=== PATIENT | female | born 2000 | race Caucasian/White ===

== ENCOUNTER 2022-08-19 14:33 | Emergency (ER) | payer OTHER, SELFPAY ==
--- NOTE | 2022-08-19 14:44 | ED.ANIMALBIT ---
HPI - Animal Bite General Chief Complaint: Animal Bite Stated Complaint: Animal Bite Time Seen by Provider: 08/19/22 14:43 Source: patient Mode of arrival: ambulatory Limitations: no limitations History of Present Illness HPI narrative: Patient is a 21-year-old female presents with cat bite to right hand. 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 Patient caught cat and when she picked him up she was bit. Patient states cat is not up-to-date on vaccines, cat is indoor only cat. Patient did cleanse wound as soon as it happened. Reports some tenderness to index finger but no weakness. Denies any obvious swelling or drainage from wound. Patient is unsure when her last tetanus shot was Related Data Home Medications Medication Instructions Recorded Confirmed levonorgestrel 14 mcg/24 hrs (3 1 device intrauterine ONCE 03/27/19 08/19/22 yrs) 13.5 mg intrauterine device (Rosalba) Allergies Allergy/AdvReac Type Severity Reaction Status Date / Time No Known Allergies Allergy Verified 08/19/22 14:49 Review of Systems Review of Systems: All systems reviewed & are unremarkable except as noted in HPI and below Constitutional: Constitutional: Denies body ache(s), Denies chills, Denies fatigue, Denies fever(s), Denies headache(s), Denies malaise and Denies weakness Eyes: Eyes: Denies blurry vision, Denies irritation and Denies loss of vision ENT: Denies otalgia, Denies headache(s), Denies nasal discharge, Denies sinus pain and Denies sore throat Cardiovascular: Cardiovascular: Denies chest pain, Denies irregular heart rhythm and Denies dyspnea Respiratory: Respiratory: Denies dyspnea Gastrointestinal: Gastrointestinal: Denies abdominal pain, Denies melena, Denies hematochezia, Denies diarrhea, Denies nausea and Denies vomiting Musculoskeletal: Musculoskeletal: Denies back pain, Denies myalgias and Denies arthralgias Integumentary/Breasts: Skin/Breast: Denies pruritus, Denies rash and Reports wounds Neurologic: Denies headache(s), Denies loss of vision and Denies weakness Psychiatric: Psychiatric: Reports no additional psychiatric complaints Endocrine: Endocrine: Denies fatigue PMF Past Medical History Medical History (Updated 08/19/22 @ 15:15 by Winter Parikh APRN) MTHFR mutation Family History Family History Grandparent Family history of blood dyscrasia Mother Family history of blood dyscrasia Social History Social History Smoking status: Never smoker Alcohol intake: never Comments At time of signature, agree with nursing past medical, surgical, social and family history. There is no relevant family history pertinent to the presenting complaint. Exam Const: General: cooperative, healthy appearing, comfortable, no acute distress and well nourished Nutritional Appearance: well nourished Orientation/consciousness: patient oriented x3 Limitations: no limitations HENMT: Head: normal to inspection, normocephalic and atraumatic Ears: hearing grossly normal bilaterally and external ears normal Face/Nose/Sinus: Normal external nose present, normal facial exam and face symmetric Face and sinus: normal facial exam and face symmetric Mouth: Yes lip normal Eyes: General: appearance normal, both eyes and all related structures Alignment and Position: alignment normal and position normal Periorbital: periorbital findings normal Eyelids: eyelids normal Pupils: Equal, round and reactive pupils present EOM: EOMs intact bilaterally Neck: Neck: normal visual inspection, full ROM and supple Chest: Chest palpation & inspection: normal inspection of the chest Resp: Effort & Inspection: normal respiratory effort and able to speak in complete sentences Auscultation: clear to auscultation bilaterally Cardio: Rate: regular rate Rhythm: regular rhythm Heart sound
[2022-08-19 14:48] VITALS: BP 101/58; PULSE 67; RESP 16; TEMP 36.4; O2SAT 100
[2022-08-19] MEDS: TETANUS,DIPHTHERIA,AC PERTUSSIS ADULT (0.5 ML) BOOSTRIX IM (15:05)
== END 2022-08-19 15:25 | disposition home or self-care (01) ==
PROVIDERS: Emergency Provider Nurse Practitioner Family
DX: S60.511A Abrasion of right hand, initial encounter (principal); W55.01XA Bitten by cat, initial encounter; Z23 Encounter for immunization; E72.12 Methylenetetrahydrofolate reductase deficiency
CPT/HCPCS: 90471; 90715; 99213; G0463

== ENCOUNTER 2022-11-05 13:00 | Emergency (ER) | payer OTHER, SELFPAY ==
--- NOTE | ~2022-11-05 | XR_ITS ---
EXAM: XR hand LT min 3V DATE: 11/05/2022 14:26 HISTORY: trauma DOG BITE VS LT 5TH DIGIT PIP 2 PUNCTURES . COMPARISON: None available. FINDINGS: Normal mineralization. No fracture or dislocation. No lytic or blastic lesion. Joint space s are maintained. No erosion or periosteal change. Soft tissues within normal limits. IMPRESSION: No acute osseous finding in the left hand. Reviewed, dictated and finalized at location K.
[2022-11-05 13:06] VITALS: BP 111/73; PULSE 86; RESP 20; TEMP 36.7; O2SAT 100
[2022-11-05] MEDS: HYDROcodone/acetaminophen (*CRX) 5-325 MG TABLET 1 TAB PO (14:22)
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
[2022-11-05] MEDS: AMOXICILLIN/CLAVULANATE K 875-125 MG TAB 1 TABLET PO (15:23)
[2022-11-05] MEDS: BACITRACIN/POLYMYXIN B OINT 15 GM TUBE 1 APPLIC TOPICAL (15:29)
[2022-11-05 15:30] VITALS: BP 110/69; PULSE 74; RESP 18; O2SAT 98
== END 2022-11-05 15:31 | disposition home or self-care (01) ==
PROVIDERS: Emergency Provider Nurse Practitioner Family
DX: S61.257A Open bite of left little finger without damage to nail, initial encounter (principal); W54.0XXA Bitten by dog, initial encounter
CPT/HCPCS: 73130; 99283; A9270

== ENCOUNTER 2023-05-07 17:22 | Emergency (ER) | payer OTHER, SELFPAY ==
--- NOTE | ~2023-05-07 | CT_ITS ---
EXAMINATION: CTA neck DATE: 05/07/2023 20:26 INDICATION: Strain relation injury, dizziness TECHNIQUE: Computed tomography (CT) of the neck was performed with 75 cc of Omnipaque 350 intravenous contrast. The dose-length product (DLP) was 617.24 mGy-cm. Automated exposure control and iterative reconstruction technique were employed. COMPARISON: None FINDINGS: There is no aneurysm or dissection. The carotid and vertebral arteries are unremarkable. Th e thyroid gland is unremarkable. The submandibular and parotid glands are symmetric. There is no lymp hadenopathy. There are no masses identified. The vasculature is patent. The airway is unremarkable. T here are no osseous abnormalities. The orbits are unremarkable. The superior mediastinum is unremarka ble. Visualized sinuses and mastoid air cells are well aerated. IMPRESSION: 1. Unremarkable CTA neck. Reviewed, dictated and finalized at location F. IMPRESSION: 1. Unremarkable CTA neck.
[2023-05-07 17:31] VITALS: BP 130/85; PULSE 73; RESP 18; TEMP 36.4; O2SAT 100
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
[2023-05-07 18:46] LABS: Basophils Percent Auto 0.5 % (0.2-1.2); Eosinophils Percent Auto 0.5 % (0-4.4); Hematocrit 44.6 % (37.0-47.0); Hemoglobin 15.2 g/dL (12.0-15.0); Immature Granulocyte Absolute 0.01 K/mm3 (0.00-0.031); Immature Granulocyte Percent A 0.1 % (0-0.5); Lymphocytes Absolute Auto 2.46 K/mm3 (0.9-3.2); Lymphocytes Percent Auto 33.8 % (18.3-44.2); Mean Corpuscular HGB Conc 34.1 g/dl (32-36); Mean Corpuscular Hemoglobin 29.4 pg (26-34); Mean Corpuscular Volume 86.3 fl (80-100); Mean Platelet Volume 9.5 fl (7.4-10.4); Monocytes Absolute Auto 0.6 K/mm3 (0.1-0.6); Monocytes Percent Auto 8.4 % (2.6-8.5); Neutrophils Absolute Auto 4.1 K/mm3 (1.3-6.7); Neutrophils Percent Auto 56.7 % (45.5-73.1); Platelet Count Result 251 k/mm3 (150-375); Red Blood Count 5.17 M/mm3 (4.2-5.4); Red Cell Distribution Width 12.6 % (11.5-14.5); White Blood Count 7.3 K/mm3 (4.5-10.0)
[2023-05-07 18:58] LABS: Anion Gap 5 mmol/L (8-16); Blood Urea Nitrogen 9 mg/dL (7-17); Calcium 9.1 mg/dL (8.4-10.2); Carbon Dioxide 27 mmol/L (22-30); Chloride 105 mmol/L (98-107); Estimated CRCL calculation 128 ml/min; Estimated Glomerular Filt Rate > 60; Glucose 89 mg/dL (65-110); Potassium 3.8 mmol/L (3.4-5.0); Sodium 137 mmol/L (137-145)
[2023-05-07 21:53] VITALS: BP 126/81; PULSE 70; RESP 17; O2SAT 100
== END 2023-05-07 21:55 | disposition home or self-care (01) ==
PROVIDERS: Physician Assistant; Emergency Provider Emergency Medicine
DX: M54.2 Cervicalgia (principal); Y04.8XXA Assault by other bodily force, initial encounter
CPT/HCPCS: 36415; 70498; 80048; 85025; 99284; Q9967

== ENCOUNTER 2023-07-27 08:42 | Emergency (ER) | payer OTHER, SELFPAY ==
[2023-07-27 09:01] VITALS: BP 108/59; PULSE 60; RESP 16; TEMP 36.6; O2SAT 100
--- NOTE | 2023-07-27 09:28 | ED.SKABFB ---
HPI - Skin/Abscess/Foreign Bdy General Chief complaint: Skin/Abscess/Foreign Body Stated complaint: cat bite right finger Time Seen by Provider: 07/27/23 09:21 Source: patient and RN notes reviewed Mode of arrival: ambulatory Limitations: no limitations History of Present Illness HPI narrative: Patient presents today complaining of cat bites to her right hand that were sustained this morning at 8:00 a.m. at work at a [employer] office. States cat is up-to-date on vaccines. Patient is up-to-date on her tetanus shot. She did clean the wounds with chlorhexidine prior to arrival. Denies numbness or tingling. She has been bit by catheterization and dog several times in the past to the right hand. Related Data Home Medications Medication Instructions Recorded Confirmed levonorgestrel 14 mcg/24 hr (up to 1 device intrauterine ONCE 03/27/19 07/27/23 3 yrs) 13.5 mg intrauterine device (Rosalba) Allergies Allergy/AdvReac Type Severity Reaction Status Date / Time No Known Allergies Allergy Verified 07/27/23 08:54 Review of Systems Review of Systems: CONSTITUTIONAL: Denies body aches, fever, chills, or sweats. EYES: Denies visual changes, redness, or discharge. ENT: Denies rhinorrhea, congestion, sore throat, or otalgia. CARDIOVASCULAR: Denies chest pain, palpitations, or edema. RESPIRATORY: Denies cough or dyspnea. GASTROINTESTINAL: Denies abdominal pain, nausea, vomiting, or diarrhea. GENITOURINARY: Denies dysuria or hematuria. SKIN: Denies rash, itching. + cat bite to right hand MUSCULOSKELETAL: Denies back pain, joint pain, or myalgia. NEUROLOGIC: Denies headache, numbness, tingling, or weakness. PSYCH: Denies depression or anxiety. [facility] Past Medical History Medical History (Updated 07/27/23 @ 09:33 by Monet Mason, COR[place], SHAMAR) MTHFR mutation Family History Family History Grandparent Family history of blood dyscrasia Mother Family history of blood dyscrasia Social History Social History Smoking status: Never smoker Alcohol intake: never Comments At time of signature, I have reviewed and agree with nursing past medical, surgical, social and family history unless otherwise noted. Please see nursing chart for further information. There is no relevant family history pertinent to the presenting complaint Exam Narrative: GENERAL: Well-appearing, well-nourished, and in no acute distress. HEAD: Normocephalic, atraumatic. EYES: EOMI. No redness or drainage. Conjunctivae normal. ENT: Mucous membranes pink and moist. NECK: Normal AROM. CHEST: No respiratory distress. EXTREMITIES: Normal range of motion. No edema. SKIN: Warm, dry, no rash. Capillary refill normal. Normal skin turgor. Puncture wounds to the dorsum of the right hand at the 2nd proximal phalanx, base of the 2nd finger, and the base of the 2nd metacarpal. Distal sensation intact in all 5 fingers, capillary refill normal. Full range of motion of all fingers. NEURO: No focal deficits. Alert and oriented x3. Gait steady. PSYCH: Normal affect. No signs of depression or anxiety. Course Course Level of Care: Express Care Visit Vital Signs Vital signs: Vital Signs Temperature 97.9 F 07/27/23 09:01 Pulse Rate 60 07/27/23 09:01 Respiratory Rate 16 07/27/23 09:01 Blood Pressure 108/59 L 07/27/23 09:01 Pulse Oximetry 100 07/27/23 09:01 Oxygen Delivery Room Air 07/27/23 09:01 Temperature 97.9 F 07/27/23 09:01 Pulse Rate 60 07/27/23 09:01 Respiratory Rate 16 07/27/23 09:01 Blood Pressure 108/59 L 07/27/23 09:01 Pulse Oximetry 100 07/27/23 09:01 Oxygen Delivery Room Air 07/27/23 09:01 Reviewed MDM - Skin/Abscess/Foreign Bdy MDM Narrative Medical decision making narrative: Patient's wounds were cleansed and dressed with Band-Aids. Care instructions giv
== END 2023-07-27 09:42 | disposition home or self-care (01) ==
PROVIDERS: Emergency Provider Nurse Practitioner
DX: S61.431A Puncture wound without foreign body of right hand, initial encounter (principal); S61.230A Puncture wound without foreign body of right index finger without damage to nail, initial encounter; W55.01XA Bitten by cat, initial encounter; E72.12 Methylenetetrahydrofolate reductase deficiency
CPT/HCPCS: 99213; G0463

== ENCOUNTER 2024-07-14 11:53 | Emergency (ER) | payer OTHER, SELFPAY ==
--- NOTE | 2024-07-14 11:55 | ED_ITS ---
HPI - Animal Bite General Chief Complaint: Wound/Laceration Stated Complaint: Dog Bite Time Seen by Provider: 07/14/24 11:55 Source: patient Mode of arrival: ambulatory Limitations: no limitations History of Present Illness HPI narrative: Blanche is a 23-year-old female patient presenting to the clinic today with complaints of a dog bite x2 days. Was bit by a dog on Sunday while she was at work. She reports that she was trying to lift a dog up to the table and it bit her. Has scabbed over wound to the right 2nd knuckle with localized redness and swelling. Last tetanus was 2022. No fevers, chills, body aches. Denies any discharge from the wound. Dog's immunizations are not immediately known-dog did pass away in their waiting on rabies testing to come back. Related Data Home Medications ?Medication ?Instructions ?Recorded ?Confirmed ?Last Taken ?Type bupropion HCl 150 mg 24 hr tablet, mg PO 07/14/24 Unknown History extended release metformin 500 mg tablet mg 07/14/24 Unknown History spironolactone 50 mg tablet mg 07/14/24 Unknown History Allergies Allergy/AdvReac Type Severity Reaction Status Date / Time No Known Allergies Allergy Verified 07/14/24 12:27 Review of Systems Review of Systems: Pertinent positives per HPI. Patient denies any fever, chills, rash, headache, visual changes, dizziness, cough, runny nose, sore throat, shortness of breath, chest pain, palpitations, nausea, vomiting, diarrhea, constipation, abdominal pain, or any urinary issues. PMFSH Past Medical History Medical History MTHFR mutation Family History Family History Grandparent Family history of blood dyscrasia Mother Family history of blood dyscrasia Social History Social History Smoking status: Never smoker Alcohol intake: never Comments At the time of my signature, I reviewed and agree with the nursing past medical, surgical, social, and family history. There is no relevant family history pertinent to the patient complaint. Exam Narrative: General: Well-developed, well nourished, in no apparent distress Head: Normocephalic, atraumatic. Cardio: Regular rate and rhythm, s1 and s2 normal, no murmur appreciated. Resp: Clear to auscultation bilaterally, no rhonchi, rales, wheezing or rubs. Integumentary: [place], warm, and dry, redness, swelling, mild erythema, and tenderness to palpation over the right 2nd knuckle with a scabbed puncture wou nd-no drainage, no palpable abscess or fluctuance. Redness measuring approximately 2 x 2 cm Course Course Emergency Course: Portions of this record may have been created with voice recognition software. Level of Care: Express Care Visit Vital Signs Vital signs: Vital Signs Temperature 36.4 C 07/14/24 12:06 Pulse Rate 73 07/14/24 12:06 Respiratory Rate 20 07/14/24 12:06 Blood Pressure 106/66 07/14/24 12:06 Pulse Oximetry 100 07/14/24 12:06 Oxygen Delivery Room Air 07/14/24 12:06 Temperature 36.4 C 07/14/24 12:06 Pulse Rate 73 07/14/24 12:06 Respiratory Rate 20 07/14/24 12:06 Blood Pressure 106/66 07/14/24 12:06 Pulse Oximetry 100 07/14/24 12:06 Oxygen Delivery Room Air 07/14/24 12:06 Vital signs reviewed MDM - Animal Bite MDM Narrative Medical decision making narrative: At the time of visit patient is resting comfortably on the exam table. Patient appears to be nontoxic. Plan: I suspect patient has an infected dog bite to the right knuckle of the index finger. Has full range of motion of the index finger but is painful with flexion and extension due to swelling. No palpable abscess. No discharge. Will place patient on Augmentin. Supportive measures were discussed with the patient and they voiced understanding discharge instructions and agrees to treatment plan. Return precautions reviewed Differential Diagnosis Differential diagnosis: Likely bite by animal, dog bite and rabies contact Discharge Plan Discharge Clinical Impression: Infected dog bite of finger Qualifiers: Encounter type: initial encounter Qualified Code(s): S61.259A - Open bite of unspecified finger without damage to nail, initial encounter Patient Disposition: Home Condition: Stable Instructions: Antibiotic Form, Animal Bite (ED), Cellulitis (ED) Additional Instructions: Rest, ice, elevate Take Augmentin as prescribed Tylenol/motrin for pain as discussed. Keep wound clean and dry Watch for signs and symptoms of worsening infection-increase in redness, streaking, swelling, purulent discharge, or increase in pain. Follow up with your PCP in 2-3 days for wound check Go to the emergency room if symptoms worsen Patient Language: [place]at[place] Prescriptions: New amoxicillin-pot clavulanate 875-125 mg tablet 1 tablet PO Q12H 7 Days Qty: 14 0RF Discontinued amoxicillin-pot clavulanate 875-125 mg tablet 1 tablet PO Q12H 7 Days Qty: 14 0RF No Action Rosalba 14 mcg/24 hrs (3 yrs) 13.5 mg intrauterine device 1 device I-UTERINE ONCE Rx Instructions: as a single dose Follow-up/Referrals: UNKNOWN,DOCTOR [Non-Staff] - Time of Disposition: 12:13 Quality NIHSS Nursing Documentation ED NIHSS nursing documentation: reviewed/agree
[2024-07-14 12:06] VITALS: BP 106/66; PULSE 73; RESP 20; TEMP 36.4; O2SAT 100
== END 2024-07-14 12:32 | disposition home or self-care (01) ==
PROVIDERS: Emergency Provider Nurse Practitioner Family
DX: S61.250A Open bite of right index finger without damage to nail, initial encounter (principal); L08.9 Local infection of the skin and subcutaneous tissue, unspecified; W54.0XXA Bitten by dog, initial encounter; E72.12 Methylenetetrahydrofolate reductase deficiency
CPT/HCPCS: 99213; G0463